=== PATIENT | female | born 1930 | race Caucasian/White ===

== ENCOUNTER 2019-03-08 16:01 | Inpatient (IN) ==
[2019-03-08] MEDS ORDERED: NS 1,000 ML IV ONE ×2 (16:47→21:30)
--- NOTE | 2019-03-08 17:11 | Diag Imaging Result Doc PS360 ---
EXAM: CHEST-1 VIEW HISTORY: AMS TECHNIQUE: Chest single view COMPARISON: None. FINDINGS: The lungs are well expanded. The heart is borderline mildly prominent. The vessels are not distended. There are small right base infiltrates. No effusion identified. Mild scoliosis IMPRESSION: Small right basilar infiltrates Electronically signed by Ernst Navarro 03/08/2019 5:09 PM
[2019-03-08 17:55] LABS: BILIRUBIN URINE NEGATIVE (NEGATIVE); BLOOD URINE 1+ (NEGATIVE); CLARITY SL. CLOUDY (CLEAR); COLOR YELLOW; GLUCOSE URINE NEGATIVE (NEGATIVE); KETONE URINE TRACE mg/dL (NEGATIVE); LEUKOCYTES URINE 1+ (NEGATIVE); NITRITE URINE POSITIVE (NEGATIVE); PROTEIN URINE TRACE mg/dL (NEGATIVE); UROBILINOGEN URINE NORMAL
[2019-03-08 18:11] LABS: BASO# 0.03 X1000 (0.0-0.2); BASO% 0.5 % (0.0-0.8); EOS# 0.13 X1000 (0.0-0.7); EOS% 2.3 % (0.0-10.0); HEMOGLOBIN 10.6 g/dL (12.0-16.0); IMM GRAN# 0.01 X1000 (0.0-0.04); IMM GRAN% 0.2 % (0.0-0.5); LYMPH# 0.69 X1000 (1.2-3.4); LYMPH% 12.1 % (20.5-51.1); MCH 29.6 PG (27-31); MCHC 32.1 g/dL (33-37); MCV 92.2 FL (81-99); MONO% 12.2 % (1.7-9.3); MPV 10.8 FL (7.4-10.4); NEUT# 4.16 X1000 (1.4-6.5); NEUT% 72.7 % (42.2-75.2); PLT 244 X1000 (130-400); RBC 3.58 XMIL (4.2-5.4); RDW 16.6 % (11.5-14.5); WBC 5.72 X1000 (4.8-10.8)
[2019-03-08] MEDS ORDERED: ROCEPHIN IV ONE (18:27)
[2019-03-08 18:41] LABS: AGAP 9; ALBUMIN 3.7 g/dL (3.5-5.0); ALKALINE PHOSPHATASE 101 U/L (32-104); BUN 20 mg/dL (8-22); CALCIUM 8.6 mg/dL (8.8-10.2); CHLORIDE 105 mmol/L (98-107); CK PROFILE 72 U/L (24-173); COSMO 285; CREATININE 0.6 mg/dL (0.5-0.9); ESTIMATED GFR > 60; GLUCOSE 89 mg/dL (70-104); GOT 24 U/L (10-30); GPT 18 U/L (10-36); POTASSIUM 4.3 mmol/L (3.5-5.1); SODIUM 142 mmol/L (136-145); TCO2 28 mmol/L (25-35); TOTAL PROTEIN 6.5 g/dL (6.3-8.3)
[2019-03-08 18:42] LABS: URINE BACTERIA 3+ /HFP; URINE CAST NONE SEEN /LPF; URINE CRYSTAL NONE SEEN /HPF; URINE EPITHELIAL CELLS <10 /HPF (<10); URINE SOURCE CLEAN CATCH; URINE YEAST NONE SEEN /HPF
--- NOTE | 2019-03-08 18:47 | PROVIDER DOCUMENTATION ---
This chart was entered by Bertrand Guallpa Scribe, acting as scribe for Marisol Mei MD. HPI-General Adult - General Chief Complaint: Altered Mental Status Stated Complaint: UTI SX Time Seen by Provider: 03/08/19 16:25 Source: patient, family Allergies/Adverse Reactions: Patient Allergies Allergy/AdvReac Type Severity Reaction Status Date / Time bacitracin [From Polysporin] Allergy RASH Verified 03/08/19 16:22 codeine Allergy VOMITING Verified 03/08/19 16:22 ibuprofen [From Motrin] Allergy Unknown Verified 03/08/19 16:22 Iodinated Contrast- Oral and Allergy RASH Verified 03/08/19 16:22 IV Dye [IV Dye] lactose Allergy NAUSEA/VOMI Verified 03/08/19 16:22 TING naproxen [From Naprosyn] Allergy FLUSHING Verified 03/08/19 16:22 neomycin Allergy RASH Verified 03/08/19 16:22 [From Neosporin ([id number])] Penicillins Allergy ANAPHYLAXIS Verified 03/08/19 16:22 polymyxin B [From Polysporin] Allergy RASH Verified 03/08/19 16:22 povidone-iodine Allergy RASH Verified 03/08/19 16:22 [From Betadine] shrimp Allergy ANAPHYLAXIS Verified 03/08/19 16:22 soap [From Betadine] Allergy RASH Verified 03/08/19 16:22 strawberry Allergy ANAPHYLAXIS Verified 03/08/19 16:22 Sulfa (Sulfonamide Allergy RASH Verified 03/08/19 16:22 Antibiotics) tolmetin [From Tolectin] Allergy Unknown Verified 03/08/19 16:22 Home Medications: Home Medication List Medication Instructions Recorded Confirmed Last Taken Type Home Meds Unobtainable 07/06/14 07/06/14 Unknown History - History of Present Illness -Gen Adult Nature of Presenting Problems: 88 yowf presents to ed with family at bedside. pt family states has been confused on location and has noted foul smelling urine and are concerned that pt has UTI on exam pt is calm and friendly with staff and in no distress Location of Pain/Injury: reports: none Pain Radiation: reports: no radiation Quality of Pain: reports: none Severity: reports: moderate (confusion) Onset/Duration: reports: this morning Timing: reports: still present, intermittent Context/Activities at Onset: reports: light activity Modifying Factors: improves with: nothing Associated Symptoms: reports: genitourinary problems (foul smell to urine), other (confusion). denies: back/neck pain, chest pain, shortness of breath Similar Symptoms Previously?: Yes (hx of UTI ) Recently seen or treated by another doctor?: No Review of Systems - Adult - REVIEW OF SYSTEMS - ADULT ROS:: ROS per family (family and pt spoke with dr) Constitutional: denies: chills, fever Eyes: reports: no symptoms reported Ears, Nose, Mouth & Throat: reports: no symptoms reported Cardiovascular: denies: chest pain, syncope Respiratory: denies: cough, shortness of breath, wheezing Gastrointestinal: denies: abdominal pain, diarrhea, nausea, vomiting Genitourinary: reports: see HPI, frequent UTI's, other (foul smell urine) Musculoskeletal: denies: back pain, neck pain Integumentary: reports: no symptoms reported Neurological: denies: dizziness/vertigo, headache/migraines, syncope, tremors Psychiatric: reports: no symptoms reported Endocrine: reports: no symptoms reported Hematologic/Lymphatic: reports: no symptoms reported Allergic/Immunologic: reports: no symptoms reported All Other Systems: Reviewed and Negative Past History - Adult - PAST MEDICAL HISTORY-ADULT Review of Records: reports: Old Records Reviewed, Nursing Assessment Review, Medications Reviewed, Social history reviewed & non-contributory. Major Childhood Illnesses: reports: denies history Cardiovascular: reports: CAD Respiratory: reports: denies history Gastrointestinal: reports: denies history Obstetrical/Gynecological: reports: denies history Genitourinary: reports: chronic UTI's Musculoskeletal: reports: arthritis Neurological: reports: denies history Psychiatric: reports: denies history Endocrine/Immune: reports: thyroid disorder Other Conditions: reports: denies history - PRIOR SURGERIES/PROCEDURES Surgical/Procedure History: reports: cardiac stent, hysterectomy, orthopedic (extremity) (left knee surgery) - PRIOR HOSPITALIZATIONS Prior Hospitalizations: reports: none - IMMUNIZATION STATUS Childhood Immunizations: See Nurse Assessment Flu Vaccine: See Nurse Assessment - FAMILY HISTORY Family History: reviewed, not pertinent - SOCIAL HISTORY Smoking: denies Substance Use: none/never Alcohol Use Frequency: never Living Situation: family Physical Exam-General - PHYSICAL EXAM-ADULT Initial Vital Signs Reviewed: Yes - CONSTITUTIONAL General Appearance: alert, no apparent distress, thin, other (confused) - EYES Eyes: PERRL/EOMI, pink conjunctivae - HEAD, EARS, NOSE, MOUTH & THROAT HENMT: moist mucous membranes - NECK Neck: non-tender, full range of motion - RESPIRATORY Respiratory: chest non-tender, lungs clear, normal breath sounds - CARDIOVASCULAR Cardiovascular: normal peripheral pulses, regular rate, rhythm - GASTROINTESTINAL (ABDOMEN) Abdominal Exam: normal bowel sounds, non tender, soft - LYMPHATIC Lymphatic: no adenopathy - MUSCULOSKELETAL Back Exam: normal inspection, no CVA tenderness Extremity: normal range of motion, non-tender - SKIN Integumentary: normal color, normal turgor, pallor - NEUROLOGIC Neurologic: grossly normal - PSYCHIATRIC Psych/Mental Status: normal mood/affect, other (confusion) Progress - PLAN OF CARE/RESULTS Progress/Plan/Lab Results: Vital Signs - 8 hr 03/08/19 16:17 Temperature 98.1 F Pulse Rate 89 Respiratory Rate 17 Blood Pressure 159/73 O2 Sat by Pulse Oximetry 98 Result Diagrams: 03/08/19 17:45 03/08/19 17:45 - REASSESSMENT Reassessment #1 Time Reassessed: 17:44 Status: unchanged - XRAY 1 XRAY: Bilateral XRAY Study: Chest Impression: See EMR Report (EXAM: CHEST-1 VIEW HISTORY: AMS TECHNIQUE: Chest single view COMPARISON: None. FINDINGS: The lungs are well expanded. The heart is borderline mildly prominent. The vessels are not distended. There are small right base infiltrates. No effusion identified. Mild scoliosis IMPRESSION: Small right basilar infiltrates Electronically signed by Ernst Navarro 03/08/2019 5:09 PM 03/08/19 170 Interpreting Physician: Ernst Navarro MD Dictated Date/Time: 03/08/191706 cc: Marisol Mei MD; Gee Boone MD) Departure - Departure Date of Disposition Decision: 03/08/19 Time of Disposition Decision: 18:46 DIAGNOSIS: Altered mental status, UTI (urinary tract infection) Disposition: ADMITTED INPATIENT 09 Certified Medical Emergency: Emergent Condition: Good Referrals and Follow-Ups: Jose Boone MD [Primary Care Provider] - - Critical Care Note This patient required my direct & personal management of CC.: No Attestation - Physician/ RICHARD Attestation Patient care was provided by Advanced Practice Provider:: No The physician spent face to face time with patient:: Yes Advanced Practice Provider documentation review:: Supervising physician onsite and consulted in the evaluation and care of this patient. The physician did have a face to face encounter with the patient. This chart was documented by the indicated scribe, (Bertrand Guallpa, Rox) and accurately reflects the services I performed and decisions made by me, Marisol Mei MD, as attested by the provider's signature.
[2019-03-08 19:13] LABS: INR 0.94; PTT 27.3 Seconds (22.3-41.8)
[2019-03-09] MEDS ORDERED: ZOFRAN IV PRN (06:44)
--- NOTE | 2019-03-09 08:44 | EKG Report ---
Test Performed on : 03/08/2019 7:48:55 PM Test Reason : ER Blood Pressure : / mmHG Vent. Rate : 095 BPM Atrial Rate : 095 BPM P-R Int : 156 ms QRS Dur : 066 ms QT Int : 316 ms P-R-T Axes : 067 -16 066 degrees QTc Int : 397 ms Normal sinus rhythm. Nonspecific ST abnormality Abnormal ECG No previous ECGs available Unconfirmed Result
[2019-03-09] MEDS: CARDIZEM PO SCH (08:49)
[2019-03-09] MEDS: LANOXIN PO SCH (08:49)
[2019-03-09] MEDS: PROTONIX PO SCH (08:49)
[2019-03-09] MEDS: SYNTHROID PO SCH ×2 (08:49→08:53)
[2019-03-09] MEDS: ASPIRIN EC PO SCH (08:49)
[2019-03-09] MEDS ORDERED: SYNTHROID PO SCH (09:00)
--- NOTE | 2019-03-09 11:29 | HISTORY AND PHYSICAL ---
PRIMARY CARE PROVIDER: Dr. Jose Boone. CHIEF COMPLAINT: Per notes, altered mental status. HISTORY OF PRESENT ILLNESS: Ms. Mckeon is an 88-year-old female who carries a past medical history of coronary artery disease status post stenting (she believes she has had 3 stents in the past), frequent urinary tract infections (she reports 3 over the last few months), arthritis, and hypothyroidism. She was brought into the ED by family, who states that the patient has been confused and they noted a foul smell coming from her urine. The patient is currently oriented to name, date of . She did not know the current year or President. She knew she was in the hospital, getting a treatment for an infection. Workup in the ED did reveal a urinary tract infection. She was started on IV antibiotics, and admitted for further evaluation and treatment. At the time of my interview, there was no family at bedside. PAST MEDICAL HISTORY: 1. Coronary artery disease, status post stenting. 2. Frequent urinary tract infections. 3. Arthritis. 4. Hypothyroidism. PAST SURGICAL HISTORY: 1. Stents, I believe x3. 2. Hysterectomy. 3. Left knee surgery. FAMILY HISTORY: Unknown. SOCIAL HISTORY: She is a . She lost her last month. She lives at home alone. No alcohol, tobacco, or illicit drug use. ALLERGIES: The patient reported no known drug allergies. However, we have several listed: 1. Polysporin (rash). 2. Codeine (vomiting). 3. Ibuprofen (unknown). 4. IV dye (rash). 5. Lactose (nausea and vomiting). 6. Naproxen (flushing). 7. Betadine (rash). 8. Shrimp (anaphylaxis). 9. Strawberries (anaphylaxis). 10. Sulfa (rash). 11. Tolectin. HOME MEDICATIONS: 1. Adult aspirin 81 mg p.o. daily. 2. Digoxin 0.125 mg p.o. daily. 3. Cardizem 30 mg p.o. daily. 4. Synthroid 125 mcg p.o. daily. 5. Mobic 7.5 mg p.o. daily. 6. Protonix 40 mg p.o. daily. REVIEW OF SYSTEMS: On 12-point review of systems, the patient denies headache, fever, chills, cough, chest pain, palpitations, shortness of breath, nausea, vomiting, diarrhea. She denies any dysuria. However, she felt that she has had an increase in her frequency of urination. PHYSICAL EXAMINATION: VITAL SIGNS: Temperature is 98.1 degrees, heart rate 76, respirations 16, blood pressure is 148/64, O2 is 94% on room air. GENERAL: Ms. Mckeon is a sleepy, 88-year-old, female, who does wake up to voice and does attempt to answer questions. She seems somewhat appropriate, maybe somewhat still a little bit confused. There was no family at bedside. She had just received her bath. HEENT: Atraumatic, normocephalic. PERRL. NECK: Supple. Trachea midline. CARDIOVASCULAR: S1, S2 appreciated. No murmurs, gallops, or rubs noted. GASTROINTESTINAL: Soft, nontender, nondistended. Positive bowel sounds x4 quadrants. PULMONARY: Bilateral breath sounds. Did not appreciate any rales, rhonchi, or wheezes. EXTREMITIES: Negative for edema. The patient was moving all extremities appropriately. NEUROLOGIC: No focal deficits noted. DIAGNOSTIC DATA: Chest x-ray: Small right basilar infiltrates. EKG: Normal sinus rhythm at 95 beats per minute. LABORATORY DATA: White count 5, hemoglobin and hematocrit 10 and 33, platelet count is 244,000. Sodium 142, potassium 4.3, BUN 20, creatinine 0.6, blood glucose is 89. Plasma lactates were negative. Troponin less than 0.010. Urinalysis showed 3+ bacteria, positive for nitrates. ASSESSMENT AND PLAN: 1. Urinary tract infection. Urine culture is currently pending. We will continue with intravenous Rocephin. She has already received 2 liters of fluid. 2. Bibasilar infiltrates. The patient does not have an appearance of pneumonia or any fluid volume overload. She is being currently treated with Rocephin, so if she does fluff out a pneumonia, she is correctly covered. She has no complaints of fever, chills, cough, or any productive sputum. 3. Question of atrial fibrillation. The patient is on digoxin and Cardizem. However, she denied any heart arrhythmias. We will continue with those medications. 4. Hypothyroidism. She also denied any thyroid problems. We will continue with her Synthroid. 5. Altered mental status secondary to #1, somewhat improving. We will continue to monitor her. Further recommendation to follow physician evaluation, laboratory and diagnostic data. Dictated by NOBLE Becker for Unruly Torres MD cc: MD Jose Cast MD
[2019-03-09] MEDS: ROCEPHIN 1 GM in NS 50 ML IV SCH (17:15)
--- NOTE | 2019-03-09 17:24 | Diag Imaging Result Doc PS360 ---
EXAM: CT HEAD W/O CONTRAST - 03/09/2019 HISTORY: AMS TECHNIQUE: CT head without contrast COMPARISON: 07/06/2014 FINDINGS: There is some generalized atrophic changes. There are chronic microvascular ischemic changes. There is a lacunar infarct at the left thalamus which appears to developed since the previous exam but otherwise is of nonspecific age. There is no discrete acute infarct identified, although acute infarcts may not be immediately visible. There is no evidence of intracranial hemorrhage, mass effect, or midline shift. There is no evidence of skull fracture. IMPRESSION: Atrophic changes. Chronic microvascular ischemic changes. 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 No hemorrhage or mass effect. This exam was performed using automated exposure control, adjustment of mA or kV according to patient size, and/or use of iterative reconstruction technique. Electronically signed by Venkat Savage 03/09/2019 5:21 PM
--- NOTE | 2019-03-09 20:49 | HISTORY AND PHYSICAL ---
ADDENDUM: Patient was seen and examined by myself. Full note dictated and discussed with nurse practitioner. The patient presented to the hospital with acute metabolic encephalopathy secondary to a urinary tract infection. This morning, after one round of antibiotics and IV fluids, she certainly appears to be improving. We will continue her in the hospital, check urine culture, blood culture, continue antibiotics, and will follow. cc: Unruly Torres MD
[2019-03-10 05:56] LABS: HEMATOCRIT 35.3 % (37.0-47.0); MCH 28.6 PG (27-31); MCHC 31.2 g/dL (33-37); MCV 91.7 FL (81-99); MPV 10.9 FL (7.4-10.4); RBC 3.85 XMIL (4.2-5.4); RDW 16.8 % (11.5-14.5); WBC 5.58 X1000 (4.8-10.8)
[2019-03-10] MEDS: SYNTHROID PO SCH ×4 (05:56→07:26)
[2019-03-10 06:26] LABS: AGAP 8; BUN 14 mg/dL (8-22); CALCIUM 8.6 mg/dL (8.8-10.2); CHLORIDE 105 mmol/L (98-107); COSMO 283; CREATININE 0.5 mg/dL (0.5-0.9); ESTIMATED GFR > 60; GLUCOSE 92 mg/dL (70-104); POTASSIUM 3.9 mmol/L (3.5-5.1); SODIUM 142 mmol/L (136-145); TCO2 30 mmol/L (25-35)
--- NOTE | 2019-03-10 06:51 | Diag Imaging Result Doc PS360 ---
EXAM: CHEST-PORTABLE HISTORY: follow up TECHNIQUE: Portable chest single view COMPARISON: 03/08/2019 FINDINGS: Poor inspiratory effort. The heart is not enlarged. The vessels are mildly distended. There are no infiltrates on the current exam. No effusion identified. IMPRESSION: Clearing of the basilar infiltrates. Electronically signed by Ernst Navarro 03/10/2019 6:49 AM
[2019-03-10] MEDS: PROTONIX PO SCH (09:28)
[2019-03-10] MEDS: CARDIZEM PO SCH (09:29)
[2019-03-10] MEDS: ASPIRIN EC PO SCH (09:29)
[2019-03-10] MEDS: LANOXIN PO SCH (09:29)
[2019-03-10] MEDS: ROCEPHIN 1 GM in NS 50 ML IV SCH (17:07)
--- NOTE | 2019-03-10 17:11 | PROGRESS NOTE ---
DATE: 03/10/2019 SUBJECTIVE: Patient is doing better. She is less confused. The family denies any fevers or chills. Denies any other issues currently. PHYSICAL EXAMINATION: Vital Signs: Temperature afebrile pulse 66, respiratory 18, blood pressure 156/49. General: Patient is awake, alert, currently in no distress. HEENT: Normocephalic. Neck: Supple. Cardiovascular: Regular rate. Chest: Clear. Abdomen: Soft. Extremities: Moves all extremities. Neurologic: No changes. ASSESSMENT: 1. ESBL negative, Escherichia coli urinary tract infection. 2. Hypothyroidism with current hyperthyroidism. We will decrease her Synthroid to 100 from 125. 3. Bibasilar infiltrates. Continue antibiotics. 4. Acute metabolic encephalopathy secondary to urinary tract infection. Continues to improve. We will continue to follow patient in the hospital. We will get physical therapy. I expect that she will need rehab upon discharge. We will follow. cc: Unruly Torres MD MTDD
[2019-03-10] MEDS: TYLENOL PO PRN (21:42)
[2019-03-11] MEDS: TYLENOL PO PRN (03:43)
[2019-03-11] MEDS: LANOXIN PO SCH (08:28)
[2019-03-11] MEDS: ASPIRIN EC PO SCH (08:28)
[2019-03-11] MEDS: CARDIZEM PO SCH (08:28)
[2019-03-11] MEDS: PRINIVIL PO SCH (08:28)
[2019-03-11] MEDS: SYNTHROID PO SCH (08:31)
[2019-03-11] MEDS: PROTONIX PO SCH (08:31)
[2019-03-11] MEDS ORDERED: SEROQUEL PO PRN (09:28)
[2019-03-11] MEDS: LEVAQUIN PO SCH (11:46)
--- NOTE | 2019-03-11 14:04 | PROGRESS NOTE ---
DATE: 03/11/2019 SUBJECTIVE: Ms. Mckeon has no complaints. She is eating breakfast. Family notes she is still confused, disoriented. She had been getting weaker at home prior to coming to the hospital, and she is currently unable to assist in getting herself out of bed. PHYSICAL EXAMINATION: Vital Signs: Reviewed. Temperature 99 degrees, pulse 86, respiratory rate 18, BP 165/90. General: Patient is awake, very pleasant, although disoriented. She is in no respiratory distress. HEENT: Normocephalic. Neck: Supple. Cardiovascular: Regular rate. No murmurs. Chest: Clear, nonlabored. Abdomen: Soft, nondistended. Extremities: Moves all extremities, although generalized weakness. ASSESSMENT: 1. Hypertension. We will add lisinopril 5 mg daily to her blood pressure control. 2. Dementia with acute metabolic encephalopathy secondary to urinary tract infection. 3. Escherichia coli urinary tract infection, pansensitive. We will switch her antibiotics to p.o. Levaquin. 4. Adult failure to thrive. 5. Hyperthyroidism. We have decreased her Synthroid. We will recheck this in the morning. We will continue to follow. cc: Unruyl Torres MD
[2019-03-12] MEDS: TYLENOL PO PRN ×2 (03:51→21:49)
[2019-03-12] MEDS: SYNTHROID PO SCH (06:26)
--- NOTE | 2019-03-12 10:15 | PROGRESS NOTE ---
DATE: 03/12/2019 SUBJECTIVE: The family notes that she slept a little bit better last night. They deny any fevers. States she is eating okay. PHYSICAL EXAMINATION: Temperature 97.7, pulse 81, respiratory rate 18, BP 134/52. General: Patient is awake. Currently in no distress. HEENT: Normocephalic. Neck: Supple. Cardiovascular: Regular rate. Chest: Clear. Abdomen: Soft. Extremities: Moves all extremities. ASSESSMENT: 1. Hypertension. Blood pressures are improved with lisinopril 5 mg. 2. Chronic dementia. 3. Escherichia coli urinary tract infection. 4. Hypothyroidism. 5. Adult failure to thrive. PLAN: We will continue physical therapy. Continue to follow. Expect that she will need rehab as she is still having difficulty getting out of bed. Further orders as needed. cc: Unruly Torres MD
[2019-03-12] MEDS: PRINIVIL PO SCH (11:01)
[2019-03-12] MEDS: PROTONIX PO SCH (11:01)
[2019-03-12] MEDS: LANOXIN PO SCH (11:01)
[2019-03-12] MEDS: ASPIRIN EC PO SCH (11:01)
[2019-03-12] MEDS: CARDIZEM PO SCH (11:01)
[2019-03-12] MEDS: LEVAQUIN PO SCH (11:02)
[2019-03-13] MEDS: SYNTHROID PO SCH (07:38)
[2019-03-13] MEDS: PROTONIX PO SCH (07:38)
[2019-03-13] MEDS: LANOXIN PO SCH (08:22)
[2019-03-13] MEDS: LEVAQUIN PO SCH (08:22)
[2019-03-13] MEDS: ASPIRIN EC PO SCH (08:23)
[2019-03-13] MEDS: PRINIVIL PO SCH (08:23)
[2019-03-13] MEDS: CARDIZEM PO SCH (08:28)
[2019-03-13] MEDS: MOBIC PO SCH (09:30)
[2019-03-13] MEDS: TYLENOL PO PRN (12:14)
--- NOTE | 2019-03-13 18:44 | PROGRESS NOTE ---
DATE: 03/13/2019 SUBJECTIVE: Patient herself has no complaints. Family notes that she is still confused, although this does seem to be getting better. Family notes that she is starting to eat a little bit better. PHYSICAL EXAMINATION: Vital Signs: Temperature 98.7 degrees, pulse 89, respiratory rate 18, BP 117/47. General: Patient is awake. She is in no respiratory distress. HEENT: Normocephalic. Neck: Supple. Cardiovascular: Regular rate. Chest: Clear. Abdomen: Soft. Extremities: Moves all extremities, although generalized weakness. ASSESSMENT: 1. Adult failure to thrive with generalized weakness. 2. Hypertension. Blood pressures are better at 117 on low-dose lisinopril. 3. Escherichia coli urinary tract infection. Continue antibiotics. 4. Mild dementia with metabolic encephalopathy secondary to her urinary tract infection, improving. PLAN: We will continue patient in the hospital, continue antibiotics, physical therapy, and will likely require transfer to rehab as she is unable to get out of bed on her own. cc: Unruly Torres MD
[2019-03-14] MEDS: TYLENOL PO PRN (01:08)
[2019-03-14] MEDS: PROTONIX PO SCH (06:42)
[2019-03-14] MEDS: SYNTHROID PO SCH (06:42)
[2019-03-14] MEDS: CARDIZEM PO SCH (09:29)
[2019-03-14] MEDS: LEVAQUIN PO SCH (09:29)
[2019-03-14] MEDS: MOBIC PO SCH (09:29)
[2019-03-14] MEDS: LANOXIN PO SCH (09:29)
[2019-03-14] MEDS: ASPIRIN EC PO SCH (09:30)
[2019-03-14] MEDS: PRINIVIL PO SCH (09:31)
[2019-03-14 11:21] VITALS: BP 143/45
--- NOTE | 2019-03-14 11:41 | DISCHARGE SUMMARY ---
ADMISSION DATE: 03/08/2019 DISCHARGE DATE: 03/14/2019 PRIMARY CARE PHYSICIAN: Dr. Jose Boone. ADMISSION DIAGNOSES: 1. Urinary tract infection. 2. Bibasilar infiltrates. 3. Question of atrial fibrillation. 4. Hypothyroidism. 5. Altered mental status secondary to #1. DISCHARGE DIAGNOSES: 1. Escherichia coli urinary tract infection. 2. Hypertension. 3. Hypothyroidism. 4. Chronic dementia. 5. Adult failure to thrive. 6. Bibasilar infiltrates, improved. 7. Altered mental status secondary to her urinary tract infection, resolved and back at baseline. SUMMARY OF FINDINGS: This is an 88-year-old female who presented to the emergency room with family due to having some confusion, and they noted a foul smell coming from her urine. She was oriented to name and date of , but did not know the current year, president. Her workup in the ED revealed a urinary tract infection that grew out in her urine culture E coli. She was placed on IV antibiotics appropriately. Her chest x-ray on arrival showed a small right basilar infiltrate; it was repeated on 03/10/2019 that showed clearing of the basilar infiltrate. Her white blood cell count is normal at 5.58. She has remained afebrile for greater than 24 hours, and it is now felt that she can safely be discharged to rehab. DISCHARGE MEDICATIONS: Will include Levaquin 500 mg p.o. daily for 7 days, digoxin 0.125 mg p.o. daily, Cardizem 30 mg p.o. daily, Synthroid 125 mcg p.o. daily, meloxicam 7.5 mg p.o. daily, pantoprazole 40 mg p.o. daily, and aspirin 81 mg p.o. daily. FOLLOW-UP: She will need to follow up with her primary care physician once her rehab is completed and an appointment will be made at that time. TIME SPENT: This is a 35 minute discharge for Мария Mckeon. Dictated by NOBLE Weaver for Unruly Torres MD cc: NOBLE Weaver MD Micah A. Howard, MD
--- NOTE | 2019-03-14 19:33 | DISCHARGE SUMMARY ---
ADMISSION DATE: 03/09/2019 DISCHARGE DATE: 03/14/2019 The patient seen and examined by myself. Full note dictated and discussed with nurse practitioner. The patient is a very pleasant 88-year-old female who is in no current respiratory distress. She was admitted to the hospital with metabolic encephalopathy which has improved, but she is still not back to her baseline mental status. She does have an Escherichia coli urinary tract infection, and she will be discharged to rehabilitation on antibiotics. Please see full note. cc: Unruly Torres MD
== END 2019-03-14 15:38 | DRG 689 ==
LOC: P.MEDSURG 16:01 → P.ED 16:01
PROVIDERS: ATTEND Family Medicine

== ENCOUNTER 2019-03-24 12:14 | Inpatient (IN) ==
--- NOTE | 2019-03-24 13:12 | Diag Imaging Result Doc PS360 ---
EXAM: ANKLE COMPLETE RIGHT HISTORY: fall TECHNIQUE: Right ankle, three views COMPARISON: None. FINDINGS: There is an oblique fracture through the distal shaft of the tibia. The proximal and distal shafts are approximately a centimeter. No other fracture to the ankle. IMPRESSION: Fracture to the distal shaft of the tibia. Electronically signed by Ernst Navarro 03/24/2019 1:10 PM
--- NOTE | 2019-03-24 13:13 | Diag Imaging Result Doc PS360 ---
EXAM: KNEE 3 VIEWS RIGHT HISTORY: fall TECHNIQUE: Right knee, three views COMPARISON: None. FINDINGS: There is an oblique fracture to the proximal fibula. There is mild angulation and separation. No other fracture or dislocation. Long-standing arthritis to the knee. Prominent atherosclerosis. IMPRESSION: Fracture to the proximal fibula. Electronically signed by Ernst Navarro 03/24/2019 1:11 PM
--- NOTE | 2019-03-24 13:14 | Diag Imaging Result Doc PS360 ---
EXAM: LOWER LEG-RIGHT HISTORY: dg TECHNIQUE: Tibia and fibula, two views COMPARISON: None. FINDINGS: There are oblique fractures to the proximal shaft of the fibula and distal shaft of the tibia. Mild angulation and separation to each fracture. Long-standing arthritis to the knee. Prominent atherosclerosis. IMPRESSION: Fractures to the tibia and fibula. Electronically signed by Ernst Navarro 03/24/2019 1:11 PM
--- NOTE | 2019-03-24 13:15 | Diag Imaging Result Doc PS360 ---
EXAM: FEMUR 1 VIEW RIGHT 03/24/2019 HISTORY: fall TECHNIQUE: Right femur one view COMMENT: There is no evidence of fracture or dislocation. The superficial femoral artery is densely calcified. IMPRESSION: No evidence of fracture. Electronically signed by Lamont Queen 03/24/2019 1:13 PM
--- NOTE | 2019-03-24 13:15 | Diag Imaging Result Doc PS360 ---
EXAM: XRAY PELVIS W/HIP 2-3VW RT HISTORY: fall TECHNIQUE: Pelvis and right hip, three views COMPARISON: 07/06/2014 FINDINGS: No fracture. No dislocation. Prominent atherosclerosis. IMPRESSION: No acute bony injury. Electronically signed by Ernst Navarro 03/24/2019 1:13 PM
--- NOTE | 2019-03-24 13:27 | Diag Imaging Result Doc PS360 ---
EXAM: LOWER LEG-LEFT HISTORY: fall TECHNIQUE: Left tibia and fibula, two views COMPARISON: None. FINDINGS: No fracture. No dislocation. Arthritis to the knee. IMPRESSION: No acute bony injury. Electronically signed by Ernst Navarro 03/24/2019 1:25 PM
--- NOTE | 2019-03-24 13:34 | Diag Imaging Result Doc PS360 ---
EXAM: CHEST-1 VIEW 03/24/2019 HISTORY: pre-op TECHNIQUE: AP portable at 1328 COMMENT: No evidence of acute cardiac or pulmonary disease is present and compared to 03/10/2019 there has been no significant change. IMPRESSION: No evidence of acute disease. Electronically signed by Lamont Queen 03/24/2019 1:32 PM
[2019-03-24] MEDS ORDERED: MORPHINE IV ONE (14:24)
[2019-03-24] MEDS ORDERED: ZOFRAN IV ONE (14:24)
[2019-03-24 14:38] LABS: BASO# 0.03 X1000 (0.0-0.2); BASO% 0.3 % (0.0-0.8); EOS# 0.05 X1000 (0.0-0.7); EOS% 0.5 % (0.0-10.0); HEMATOCRIT 37.7 % (37.0-47.0); HEMOGLOBIN 12.4 g/dL (12.0-16.0); IMM GRAN# 0.02 X1000 (0.0-0.04); IMM GRAN% 0.2 % (0.0-0.5); LYMPH# 0.95 X1000 (1.2-3.4); LYMPH% 8.7 % (20.5-51.1); MCH 29.8 PG (27-31); MCHC 32.9 g/dL (33-37); MCV 90.6 FL (81-99); MONO# 1.01 X1000 (0.11-0.59); MONO% 9.3 % (1.7-9.3); MPV 10.2 FL (7.4-10.4); PLT 352 X1000 (130-400); RBC 4.16 XMIL (4.2-5.4); RDW 16.8 % (11.5-14.5); WBC 10.86 X1000 (4.8-10.8)
[2019-03-24 14:40] LABS: INR 0.96; PROTIME 12.9 Seconds (11.0-16.0)
[2019-03-24 14:41] LABS: PTT 26.2 Seconds (22.3-41.8)
--- NOTE | 2019-03-24 15:07 | EKG Report ---
Test Performed on : 03/24/2019 2:38:44 PM Test Reason : pre-op Blood Pressure : / mmHG Vent. Rate : 085 BPM Atrial Rate : 085 BPM P-R Int : 136 ms QRS Dur : 066 ms QT Int : 352 ms P-R-T Axes : 025 -07 034 degrees QTc Int : 418 ms Normal sinus rhythm. Possible Anterior infarct , age undetermined Abnormal ECG When compared with ECG of 08-MAR-2019 19:48, (Unconfirmed) No significant change was found Unconfirmed Result
[2019-03-24] MEDS ORDERED: KAYEXALATE PO ONE (15:08)
--- NOTE | 2019-03-24 15:21 | PROVIDER DOCUMENTATION ---
This chart was entered by Roby Huerta Scribe, acting as scribe for Beau Cross MD. HPI-Musculoskeletal Pain/Inj - GENERAL Chief Complaint: Extremity Injury Stated Complaint: fall- R tib/fib fx Time Seen by Provider: 03/24/19 12:27 Source: patient, family - HX OF PRESENT ILLNESS-MUSKULOSKELTAL Nature of Presenting Problem: Pt is a 88 yof who presents to the ED with a CC of fall injury. Pt reports she was at physical therapy for a UTI, when she went to stand up, became lightheaded and fell. Pt complains of bilateral hip pain and bilateral lower extremity pain. Pt denies any chest pain, shortness of breath, LOC, nausea, and vomiting. The following are additional X-rays that would not fit in the progress note section: EXAM: XRAY PELVIS W/HIP 2-3VW RT HISTORY: fall TECHNIQUE: Pelvis and right hip, three views COMPARISON: 07/06/2014 FINDINGS: No fracture. No dislocation. Prominent atherosclerosis. IMPRESSION: No acute bony injury. Electronically signed by Ernst Navarro 03/24/2019 1:13 PM 03/24/19 1313 Interpreting Physician: Ernst Navarro MD Dictated Date/Time: 03/24/19 1312 cc: Beau Cross MD; Jose Boone MD EXAM: FEMUR 1 VIEW RIGHT 03/24/2019 HISTORY: fall TECHNIQUE: Right femur one view COMMENT: There is no evidence of fracture or dislocation. The superficial fem oral artery is densely calcified. IMPRESSION: No evidence of fracture. Electronically signed by Lamont Queen 03/24/2019 1:13 PM 03/24/19 1313 Interpreting Physician: Lamont Queen MD Dictated Date/Time: 03/24/19 1313 cc: Beau Cross MD; Jose Boone MD EXAM: ANKLE COMPLETE RIGHT HISTORY: fall TECHNIQUE: Right ankle, three views COMPARISON: None. FINDINGS: There is an oblique fracture through the distal shaft of the tibia. The proximal and distal shafts are approximately a centimeter. No other fracture to the ankle. IMPRESSION: Fracture to the distal shaft of the tibia. Electronically signed by Ernst Navarro 03/24/2019 1:10 PM 03/24/19 1310 Interpreting Physician: Ernst Navarro MD Dictated Date/Time: 03/24/19 4831 cc: Beau Cross MD; Jose Boone MD Quality of Pain: reports: aching, sharp Severity in ED: mild Onset/Duration: this morning Timing: still present Any recent injury?: Yes Locality of Occurance: Other (Physical therapy office) Similar Symptoms Previously?: No Recently seen or treated by another doctor?: No - FALL INJURY Location of Pain/Injury: reports: head (Lightheaded), pelvis (Bilateral), lower extremity (Bilateral) Reason for Fall: reports: unknown (See HPI) Loss of Consciousness: no loss of consciousness Injury Associated Symptoms: reports: muscle aches, trouble walking - TRUNK INJURY Location of Injury(s)/Pain: reports: pelvis Context / Method of Injury: reports: fall - HIP/PELVIS PAIN/INJURY Hip Pain Location: reports: hip (R), hip (L) Context / Method of Injury: reports: fall Associated Symptoms: reports: sensory/motor loss - LOWER EXTREMITY PAIN/INJURY Lower Extremities Pain: hip: bilateral, leg: bilateral, thigh: left, ankle: right Context / Method of Injury: reports: fell Review of Systems - Adult - REVIEW OF SYSTEMS - ADULT Constitutional: reports: see HPI Eyes: reports: no symptoms reported Ears, Nose, Mouth & Throat: reports: no symptoms reported Cardiovascular: reports: no symptoms reported Respiratory: reports: no symptoms reported Gastrointestinal: reports: no symptoms reported Genitourinary: reports: no symptoms reported Musculoskeletal: reports: see HPI, joint pain, muscle aches, muscle weakness Integumentary: reports: no symptoms reported Neurological: reports: see HPI Psychiatric: reports: no symptoms reported Endocrine: reports: no symptoms reported Hematologic/Lymphatic: reports: no symptoms reported Allergic/Immunologic: reports: no symptoms reported All Other Systems: Reviewed and Negative Past History - Adult - PAST MEDICAL HISTORY-ADULT Review of Records: reports: Old Records Reviewed, Nursing Assessment Review, Me dications Reviewed, Social history reviewed & non-contributory. Major Childhood Illnesses: reports: denies history Cardiovascular: reports: CAD Respiratory: reports: denies history Gastrointestinal: reports: denies history Obstetrical/Gynecological: reports: denies history Genitourinary: reports: denies history Musculoskeletal: reports: arthritis Neurological: reports: denies history Endocrine/Immune: reports: thyroid disorder Other Conditions: reports: denies history - PRIOR SURGERIES/PROCEDURES Surgical/Procedure History: reports: cardiac stent, hysterectomy, orthopedic (extremity) (left knee surgery) - PRIOR HOSPITALIZATIONS Prior Hospitalizations: reports: none - IMMUNIZATION STATUS Childhood Immunizations: See Nurse Assessment Flu Vaccine: See Nurse Assessment - FAMILY HISTORY Family History: reviewed, not pertinent - SOCIAL HISTORY Smoking: denies, non-smoker Substance Use: none/never, denies Alcohol Use Frequency: never Physical Exam-Injury Related - Physical Exam-Injury Related Initial Vital Signs Reviewed: Yes General Appearance: alert, mild distress Eyes: PERRL/EOMI, pink conjunctivae Head, Ears, Nose, Mouth & Throat: moist mucous membranes Neck: non-tender, full range of motion Respiratory: chest non-tender, lungs clear, normal breath sounds, no pleuratic chest pain, no respiratory distress Cardiovascular: normal peripheral pulses, regular rate, rhythm, no edema, no gallop Abdominal Exam: normal bowel sounds, soft Extremity: tenderness (See HPI) Integumentary: normal color, warm/dry Psych/Mental Status: normal mood/affect, normal thought content, normal thought process, oriented x 3 Progress - PLAN OF CARE/RESULTS Progress/Plan/Lab Results: Vital Signs - 8 hr 03/24/19 12:32 Temperature 98.5 F Pulse Rate 91 H Respiratory Rate 18 Blood Pressure 145/76 O2 Sat by Pulse Oximetry 96 Laboratory Results - last 24 hr 03/24/19 03/24/19 03/24/19 13:53 14:25 14:25 WBC 10.86 H RBC 4.16 L Hgb 12.4 Hct 37.7 MCV 90.6 MCH 29.8 MCHC 32.9 L RDW Std Deviation 16.8 H Plt Count 352 MPV 10.2 Immature Gran % (Auto) 0.2 Neut % (Auto) 81.0 H Lymph % (Auto) 8.7 L Jay % (Auto) 9.3 Eos % (Auto) 0.5 Baso % (Auto) 0.3 Immature Gran # (Auto) 0.02 Neut # (Auto) 8.80 H Lymph # (Auto) 0.95 L Jay # (Auto) 1.01 H Eos # (Auto) 0.05 Baso # (Auto) 0.03 PT 12.9 INR 0.96 PTT (Actin FS) 26.2 Sodium 139 Potassium 5.9 H Chloride 103 Carbon Dioxide 24 L Anion Gap 12 BUN 22 Creatinine 0.6 Estimated GFR/1.73 m2 > 60 BUN/Creatinine Ratio 37 Glucose 106 H Calculated Osmolality 281 Calcium 9.3 Total Bilirubin 0.19 L AST 51 H ALT 16 Alkaline Phosphatase 90 Total Protein 6.8 Albumin 3.6 Globulin 3.2 Albumin/Globulin Ratio 1.1 Orders Category Date Time Status Nursing- Obtain EKG ONCE Care 03/24/19 13:21 Active ANKLE COMPLETE RIGHT [RAD] Stat Exams 03/24/19 12:35 Completed CHEST-1 VIEW [RAD] Stat Exams 03/24/19 13:21 Completed FEMUR 1 VIEW RIGHT [RAD] Stat Exams 03/24/19 12:35 Completed KNEE 3 VIEWS RIGHT [RAD] Stat Exams 03/24/19 12:35 Completed LOWER LEG-LEFT [RAD] Stat Exams 03/24/19 13:19 Completed LOWER LEG-RIGHT [RAD] Stat Exams 03/24/19 12:35 Completed XRAY PELVIS W/HIP 2-3VW RT [RAD] Stat Exams 03/24/19 12:35 Completed CBC WITH DIFF [HEME] Stat Lab 03/24/19 14:25 Completed COMPREHENSIVE METABOLIC PANEL [CHEM] Stat Lab 03/24/19 13:53 Completed PROTIME WITH INR [COAG] Stat Lab 03/24/19 14:25 Completed PTT [COAG] Stat Lab 03/24/19 14:25 Completed URINALYSIS W/POSS RFLX CULT [URINALYSIS] Stat Lab 03/24/19 13:21 Uncollected Morphine Med 03/24/19 14:24 Discontinued 2 mg IV NOW ONE Ondansetron [Zofran] Med 03/24/19 14:24 Discontinued 4 mg IV NOW ONE Sodium Polystyrene [Kayexalate] Med 03/24/19 15:08 Discontinued 15 gm PO NOW ONE EKG [EKG] Stat Ther 03/24/19 13:21 Draft Transfer/Admit Order [TRANSFER] Routine Transfer 03/24/19 15:09 Ordered Result Diagrams: 03/24/19 14:25 03/24/19 13:53 - EKG 1 Time of EKG reading by physician:: 14:59 EKG Read and Signed by:: Beau Cross EKG Interpretation (*Must complete 3 of following elements*): Abnormal (Possible anterior infarct, age undetermined) Rate: 85 Rhythm: NSR [place]: normal QRS: normal [place] Interval: normal ST Wave: normal - XRAY 1 XRAY: Bilateral XRAY Study: Chest Impression: See EMR Report ( EXAM: CHEST-1 VIEW 03/24/2019 HISTORY: pre-op TECHNIQUE: AP portable at 1328 COMMENT: No evidence of acute cardiac or pulmonary disease is present and compared to 03/10/2019 there has been no significant change. IMPRESSION: No evidence of acute disease. Electronically signed by Lamont Queen 03/24/2019 1:32 PM 03/24/19 1332 Interpreting Physician: Lamont Queen MD Dictated Date/Time: 03/24/19 1330 cc: Beau Cross MD; Jose Boone MD) 2 XRAY: Left XRAY Study: other (Lower extremity) Impression: See EMR Report (EXAM: LOWER LEG-LEFT HISTORY: fall TECHNIQUE: Left tibia and fibula, two views COMPARISON: None. FINDINGS: No fracture. No dislocation. Arthritis to the knee. IMPRESSION: No acute bony injury. Electronically signed by Ernst Navarro 03/24/2019 1:25 PM 03/24/19 1325 Interpreting Physician: Ernst Navarro MD Dictated Date/Time: 03/24/19 1325 cc: Beau Cross MD; Jose Boone MD) 3 XRAY: Right XRAY Study: other (Lower extremity) Impression: See EMR Report ( EXAM: LOWER LEG-RIGHT HISTORY: dg TECHNIQUE: Tibia and fibula, two views COMPARISON: None. FINDINGS: There are oblique fractures to the proximal shaft of the fibula and distal shaft of the tibia. Mild angulation and separation to each fracture. Long-standing arthritis to the knee. Prominent atherosclerosis. IMPRESSION: Fractures to the tibia and fibula. Electronically signed by Ernst Navarro 03/24/2019 1:11 PM 03/24/19 1311 Interpreting Physician: Ernst Navarro MD Dictated Date/Time: 03/24/19 1311 cc: Beau Cross MD; Jose Boone MD) 4 XRAY: Right XRAY Study: Knee Impression: See EMR Report (EXAM: KNEE 3 VIEWS RIGHT HISTORY: fall TECHNIQUE: Right knee, three views COMPARISON: None. FINDINGS: There is an oblique fracture to the proximal fibula. There is mild angulation and separation. No other fracture or dislocation. Long-standing arthritis to the knee. Prominent atherosclerosis. IMPRESSION: Fracture to the proximal fibula. Electronically signed by Ernst Navarro 03/24/2019 1:11 PM 03/24/19 1311 Interpreting Physician: Ernst Navarro MD Dictated Date/Time: 03/24/19 1310 cc: Beau Cross MD; Jose Boone MD) - CONSULTS/PCP/HOSPITALIST Notification #1 *Consult/PCP/Hospitalist*: Dr. Schultz Time Discussed: 15:02 Reason/Comments: Made aware of pt and accepts admission Consult Disposition: Admit Departure - Departure Date of Disposition Decision: 03/24/19 Time of Disposition Decision: 15:20 DIAGNOSIS: Closed fracture of right tibia and fibula Qualifiers: Encounter type: initial encounter Qualified Code(s): S82.201A - Unspecified fracture of shaft of right tibia, initial encounter for closed fracture; S82.401A - Unspecified fracture of shaft of right fibula, initial encounter for closed fracture Disposition: ADMITTED INPATIENT 09 Certified Medical Emergency: Emergent Condition: Good Additional Freetext Instructions: ED Follow Up Instructions: You have been treated by a care provider in the Emergency Department. These instructions are being provided to you so you can have an understanding of how to care for yourself upon discharge. Upon discharge from the Emergency Department, you are responsible for making arrangements for follow-up care by a physician of your choice. Take all prescribed medications as directed. Return to the Emergency Department immediately for any new or worsening symptoms. You may call the Physician Referral phone number at [phone] to obtain a list of Physicians who are taking new patients. Referrals and Follow-Ups: Jose Boone MD [Primary Care Provider] - - Critical Care Note This patient required my direct & personal management of CC.: No Attestation - Physician/ RICHARD Attestation Patient care was provided by Advanced Practice Provider:: No The physician spent face to face time with patient:: Yes Advanced Practice Provider documentation review:: Supervising physician onsite and consulted in the evaluation and care of this patient. The physician did have a face to face encounter with the patient. This chart was documented by the indicated scribe, (Huerta,Roby J., Scribe) and accurately reflects the services I performed and decisions made by me, Beau Cross MD, as attested by the provider's signature.
[2019-03-24 15:49] LABS: URINE SOURCE CATH
[2019-03-24 15:50] LABS: BILIRUBIN URINE NEGATIVE (NEGATIVE); BLOOD URINE NEGATIVE (NEGATIVE); COLOR YELLOW; GLUCOSE URINE NEGATIVE (NEGATIVE); KETONE URINE NEGATIVE (NEGATIVE); LEUKOCYTES URINE NEGATIVE (NEGATIVE); NITRITE URINE NEGATIVE (NEGATIVE); PH URINE 6.5; PROTEIN URINE NEGATIVE (NEGATIVE); SP GRAVITY URINE 1.014; TURBIDITY URINE CLEAR (CLEAR); UR EPITHELIAL CELLS <10 /HPF (<10); URINE BACTERIA NEGATIVE /HPF; URINE RBC <10 /HPF (<10); URINE WBC <10 /HPF (<10); UROBILINOGEN URINE NORMAL (NORMAL)
[2019-03-24 16:02] LABS: AGAP 12; ALB/GLOB RATIO 1.3; ALBUMIN 3.8 g/dL (3.5-5.0); ALKALINE PHOSPHATASE 101 U/L (32-104); BUN 19 mg/dL (8-22); CALCIUM 9.4 mg/dL (8.8-10.2); CHLORIDE 101 mmol/L (98-107); COSMO 282; CREATININE 0.6 mg/dL (0.5-0.9); ESTIMATED GFR > 60; GLUCOSE 109 mg/dL (70-104); GOT 30 U/L (10-30); GPT 15 U/L (10-36); POTASSIUM 4.3 mmol/L (3.5-5.1); SODIUM 140 mmol/L (136-145); TCO2 27 mmol/L (25-35); TOTAL BILIRUBIN 0.21 mg/dL (0.20-1.00); TOTAL PROTEIN 6.8 g/dL (6.3-8.3)
--- NOTE | 2019-03-24 17:46 | HISTORY AND PHYSICAL ---
PRIMARY CARE PROVIDER: Dr. Jose Boone. CHIEF COMPLAINT: Fall with right lower extremity pain. HISTORY OF PRESENT ILLNESS: Ms. Mckeon is a 88-year-old female, who carries a past medical history of coronary artery disease status post stenting, frequent urinary tract infections, arthritis, hypothyroidism, who was most recently discharged from our service on 03/14/2019 to [facility] in [place] after having a urinary tract infection and altered mental status. The patient could not remember what happened. Per family, she got up without asking for assistance. She felt dizzy and fell. She did not hit her head. There was no loss of consciousness. Workup in the ED revealed a right tibia-fibula fracture and hyperkalemia at 5.9; recheck after IV fluid is 4.3. She will be admitted to the surgical floor with an Orthopedic consult. Make her n.p.o. after midnight. PAST MEDICAL HISTORY: 1. Coronary artery disease status post stenting. 2. Frequent urinary tract infections. 3. Arthritis. 4. Hypothyroidism. PAST SURGICAL HISTORY: 1. Stents x3. 2. Hysterectomy. 3. With knee surgery. FAMILY HISTORY: Unknown. SOCIAL HISTORY: She was a . She lost her last month. She lives at home alone. No alcohol, tobacco, or illicit drug use. She had been in [facility] in [place] for rehabilitation for 1 week. ALLERGIES: Several: 1. Polysporin, rash. 2. Codeine, vomiting. 3. Ibuprofen, unknown. 4. IV dye, rash. 5. Lactose, nausea/vomiting. 6. Naproxen, flushing. 7. Penicillin, anaphylaxis. 8. Betadine, rash. 9. Shrimp, anaphylaxis. 10. Strawberries, anaphylaxis. 11. Sulfa (rash). 12. Tolmetin, unknown. HOME MEDICATIONS: 1. Aspirin 81 mg p.o. daily. 2. Digoxin 0.125 mg p.o. daily. 3. Cardizem 30 mg p.o. daily. 4. Synthroid 125 mcg p.o. daily. 5. Mobic 7.5 mg p.o. daily. 6. Protonix 40 mg p.o. daily. PHYSICAL EXAMINATION: VITAL SIGNS: Temperature is 98.5 degrees, heart rate 91, respirations 18, blood pressure 145/76, O2 is 96% on room air. GENERAL: Ms. Mckeon is a pleasant 88-year-old female, who is lying on the stretcher in no acute distress. HEENT: Atraumatic, normocephalic. PERRL. NECK: Supple. Trachea midline. CARDIOVASCULAR: S1, S2 appreciated. No murmurs, gallops, or rubs noted. RESPIRATORY: Lung sounds clear bilaterally. GASTROINTESTINAL: Soft, nontender, nondistended. Positive bowel sounds 4 quadrants. EXTREMITIES: Negative for edema. Bilateral pedal pulses are palpable. NEUROLOGIC: No focal deficits noted. DIAGNOSTIC DATA: Right ankle x-ray: Fracture to the distal shaft of the tibia, right femur. No evidence of fracture. Hip/pelvis x-ray: No acute bony injury. Lower extremity on the right showed tibia-fibula fracture. Lower extremity on the left: No acute injury. Chest x-ray: No evidence of acute disease. EKG: Normal sinus rhythm. White count 10, hemoglobin 12, hematocrit 37, platelet count is 352,000. Chemistry: Initial set of chemistry has been canceled where she showed a potassium of 5.9. Repeat labs: Sodium is 140, potassium 4.3, BUN 19, creatinine 0.6, blood glucose was 109. Urinalysis is negative for bacteria, negative for nitrites. Digoxin is 1.3. ASSESSMENT AND PLAN: 1. Status post mechanical fall with a right tibia-fibula fracture. We will consult Orthopedics, make her n.p.o. after midnight. Continue with pain management with Demerol. She was given a dose of morphine. She does have an allergy to codeine. She had a funny feeling in her chest and did not like the way that it made her feel, so we will continue with the Demerol and IV fluids. 2. Coronary artery disease status post stenting. We will continue home medications. 3. Frequent urinary tract infections history. She has been treated for a previous one. 4. Arthritis. 5. Hypothyroidism. Continue Synthroid. 6. Probable atrial fibrillation. Patient is on both digoxin and Cardizem. Further recommendation to follow physician evaluation and laboratory and diagnostic data. Dictated by NOBLE Becker for Javid Roe MD Addendum: Patient seen and examined by myself. Agree with NOBLE note. It reflects my assessment and plan. Patient is being admitted for tibia fibula fracture. Will consult Orthopedics and follow recommendations. cc: MD Jose Reece MD MTDD
[2019-03-24] MEDS: NS 1,000 ML IV SCH (18:45)
[2019-03-24] MEDS: DEMEROL IV PRN (21:05)
[2019-03-24] MEDS: COLACE PO SCH (21:06)
[2019-03-25] MEDS: DEMEROL IV PRN ×4 (05:44→20:24)
[2019-03-25 05:53] LABS: RBC 3.65 XMIL (4.2-5.4); WBC 7.69 X1000 (4.8-10.8)
[2019-03-25 05:54] LABS: BASO# 0.03 X1000 (0.0-0.2); BASO% 0.4 % (0.0-0.8); EOS# 0.34 X1000 (0.0-0.7); EOS% 4.4 % (0.0-10.0); HEMATOCRIT 33.3 % (37.0-47.0); HEMOGLOBIN 10.7 g/dL (12.0-16.0); LYMPH# 1.01 X1000 (1.2-3.4); LYMPH% 13.1 % (20.5-51.1); MCH 29.3 PG (27-31); MCHC 32.1 g/dL (33-37); MCV 91.2 FL (81-99); MONO# 0.81 X1000 (0.11-0.59); MONO% 10.5 % (1.7-9.3); MPV 10.4 FL (7.4-10.4); NEUT% 71.6 % (42.2-75.2); PLT 308 X1000 (130-400)
[2019-03-25 06:17] LABS: AGAP 5; ALB/GLOB RATIO 1.1; ALKALINE PHOSPHATASE 106 U/L (32-104); BUN 17 mg/dL (8-22); CALCIUM 8.7 mg/dL (8.8-10.2); CHLORIDE 105 mmol/L (98-107); COSMO 281; CREATININE 0.6 mg/dL (0.5-0.9); ESTIMATED GFR > 60; GLUCOSE 92 mg/dL (70-104); GOT 43 U/L (10-30); GPT 27 U/L (10-36); MAGNESIUM 1.8 mg/dL (1.5-2.7); POTASSIUM 3.9 mmol/L (3.5-5.1); SODIUM 140 mmol/L (136-145); TCO2 30 mmol/L (25-35); TOTAL BILIRUBIN 0.37 mg/dL (0.20-1.00); TOTAL PROTEIN 5.8 g/dL (6.3-8.3)
[2019-03-25] MEDS: NS 1,000 ML IV SCH ×2 (08:41→22:26)
[2019-03-25] MEDS: ZOFRAN IV PRN (11:14)
[2019-03-25] MEDS: COLACE PO SCH ×2 (11:25→20:24)
[2019-03-25] MEDS: SYNTHROID PO SCH (11:25)
[2019-03-25] MEDS: PROTONIX PO SCH (11:25)
[2019-03-25] MEDS: MOBIC PO SCH (11:25)
[2019-03-25] MEDS: CARDIZEM PO SCH (11:25)
[2019-03-25] MEDS: LANOXIN PO SCH (11:26)
--- NOTE | 2019-03-25 13:00 | ORTHOPAEDICS CONSULTATION ---
DATE: 03/25/2019 CHIEF COMPLAINT: Right leg pain. HISTORY OF PRESENT ILLNESS: This 88-year-old female was admitted by the hospitalist after a fall from a standing height with right tibia fracture. She complains of pain and tenderness over the right leg. She denies any other complaints. She reports soreness over the right leg only. PAST MEDICAL HISTORY: Significant for coronary disease with stenting, UTI, arthritis, hypothyroidism. SURGICAL HISTORY: Status post a stent, hysterectomy, knee surgery in the past. SOCIAL HISTORY: A household ambulator. Has family in the area. She is in [facility] for rehab currently. ALLERGIES: Reported to Polysporin, codeine, ibuprofen, IV dye, lactose, Naprosyn, penicillin, Betadine, shrimp, strawberry, sulfa, and tolmetin. HOME MEDICINES: Aspirin, digoxin, Cardizem, Synthroid, Mobic and Protonix. PHYSICAL EXAM: Examination reveals minimal deformity with only slight shortening of the right lower extremity. There is tenderness over the distal tibia and proximal fibula. Compartments are soft. No open wounds. She is nontender over the remainder of the right lower extremity. She is relatively nontender over both upper and the left lower extremity. X-RAYS: X-rays reviewed show a spiral distal 1/3 tibia fracture with a proximal nondisplaced fibula fracture. ASSESSMENT: Closed right tibia-fibula fracture. PLAN: The patient will be initially splinted to allow the swelling to reduce. Probably Wednesday morning, we will put her in a short-leg cast and re x-ray it. If the alignment looks good in the cast, we will consider nonsurgical care. If she has excessive shortening or displacement after casting, then we will need to consider surgical fixation, possibly on Wednesday. We have made orders for the splint to be applied. We will plan on casting her Wednesday. cc: Zbigniew Lundberg MD
--- NOTE | 2019-03-25 17:14 | PROGRESS NOTE ---
DATE: 03/25/2019 SUBJECTIVE: The patient has no major complaints. OBJECTIVE: Blood pressure is 126/53, heart rate of 72, respiratory rate 16, temperature 97.9 degrees, 93% on 2 L.Cardiovascular: Regular rate and rhythm. Pulmonary: Bilateral breath sounds clear to auscultation. GI: Was soft, nontender, nondistended. Bowel sounds are positive. Her right leg is in a cast . PROBLEMS: 1. Tibia-fibula fracture. She is in a cast alone now and they are considering surgery on Wednesday but other recommendations per Orthopedics obviously. 2. Coronary artery disease status post percutaneous coronary intervention. Will continue to follow, monitor. Continue regular medications. Holding anti-platelet for the time being. 3. Atrial fibrillation appears to be rate controlled. 4. Disposition. Will likely need rehab but once she is stabilized. 5. Hyperkalemia, that is also resolved. Disposition pending her clinical status. cc: Grnat Cormier MD MTDD
[2019-03-26 05:52] LABS: BASO# 0.04 X1000 (0.0-0.2); BASO% 0.5 % (0.0-0.8); EOS# 0.54 X1000 (0.0-0.7); EOS% 6.8 % (0.0-10.0); HEMATOCRIT 34.3 % (37.0-47.0); HEMOGLOBIN 10.9 g/dL (12.0-16.0); IMM GRAN# 0.02 X1000 (0.0-0.04); IMM GRAN% 0.3 % (0.0-0.5); LYMPH% 11.4 % (20.5-51.1); MCH 29.4 PG (27-31); MCHC 31.8 g/dL (33-37); MCV 92.5 FL (81-99); MONO# 0.92 X1000 (0.11-0.59); MONO% 11.6 % (1.7-9.3); MPV 10.5 FL (7.4-10.4); NEUT# 5.48 X1000 (1.4-6.5); NEUT% 69.4 % (42.2-75.2); PLT 312 X1000 (130-400); RBC 3.71 XMIL (4.2-5.4); RDW 17.1 % (11.5-14.5)
[2019-03-26 07:06] LABS: AGAP 12; BUN 17 mg/dL (8-22); CALCIUM 8.3 mg/dL (8.8-10.2); CHLORIDE 105 mmol/L (98-107); COSMO 281; CREATININE 0.5 mg/dL (0.5-0.9); ESTIMATED GFR > 60; GLUCOSE 97 mg/dL (70-104); MAGNESIUM 1.7 mg/dL (1.5-2.7); SODIUM 140 mmol/L (136-145); TCO2 23 mmol/L (25-35)
[2019-03-26 07:07] LABS: POTASSIUM 4.7 mmol/L (3.5-5.1)
--- NOTE | 2019-03-26 09:44 | ORTHOPAEDICS PROGRESS NOTE ---
DATE: 03/26/2019 SUBJECTIVE: Mrs. Mckeon will be casted in the morning. We will re-x-ray after the cast is applied. If the reduction looks good, then we can treat her nonsurgically. If not, we will plan on surgical fixation on Wednesday. cc: Zbigniew Lundberg MD
[2019-03-26] MEDS: PROTONIX PO SCH (09:48)
[2019-03-26] MEDS: LANOXIN PO SCH (09:49)
[2019-03-26] MEDS: MOBIC PO SCH (09:49)
[2019-03-26] MEDS: COLACE PO SCH ×2 (09:49→23:07)
[2019-03-26] MEDS: SYNTHROID PO SCH (09:49)
[2019-03-26] MEDS: ASPIRIN EC PO SCH (09:49)
[2019-03-26] MEDS: CARDIZEM PO SCH (09:49)
[2019-03-26] MEDS: NS 1,000 ML IV SCH ×2 (10:46→23:07)
[2019-03-26] MEDS: DEMEROL IV PRN ×2 (11:55→18:41)
--- NOTE | 2019-03-26 17:43 | PROGRESS NOTE ---
DATE: 03/26/2019 SUBJECTIVE: The patient looks a little bit better today. She is still in some pain. OBJECTIVE DATA: Vital signs: Her blood pressure is 137/48, heart rate 74, respiratory rate 18, temperature 98 degrees, 97% on room air. Cardiovascular: Regular rate and rhythm. Pulmonary: Bilateral breath sounds. Clear to auscultation. GI: Soft, nontender, nondistended. Bowel sounds are positive. LABORATORY DATA: White count is 7, hemoglobin and hematocrit 10 and 34, platelets 312,000. Basic looked okay. PROBLEM LIST: 1. Tibia-fibula fracture on the right. Planning for casting with reduction, I guess externally, and if stable then she can be treated nonsurgically. Orthopedics is managing, obviously. 2. Coronary artery disease status post percutaneous coronary intervention. Will continue regular medications. 3. Atrial fibrillation. She is not on anticoagulants, I guess maybe because of frequent falls, but I do think she needs some DVT prophylaxis. Will initiate Lovenox. This can be adjusted accordingly. 4. Disposition. She will go back to rehab once stabilized. cc: Grant Cormier MD
[2019-03-27 05:51] LABS: BASO# 0.03 X1000 (0.0-0.2); BASO% 0.3 % (0.0-0.8); EOS# 0.45 X1000 (0.0-0.7); EOS% 4.2 % (0.0-10.0); HEMATOCRIT 35.2 % (37.0-47.0); HEMOGLOBIN 11.4 g/dL (12.0-16.0); IMM GRAN# 0.03 X1000 (0.0-0.04); IMM GRAN% 0.3 % (0.0-0.5); LYMPH# 0.98 X1000 (1.2-3.4); LYMPH% 9.1 % (20.5-51.1); MCH 29.7 PG (27-31); MCHC 32.4 g/dL (33-37); MCV 91.7 FL (81-99); MONO# 0.95 X1000 (0.11-0.59); MONO% 8.8 % (1.7-9.3); MPV 10.6 FL (7.4-10.4); NEUT# 8.35 X1000 (1.4-6.5); NEUT% 77.3 % (42.2-75.2); PLT 329 X1000 (130-400); RBC 3.84 XMIL (4.2-5.4); RDW 16.9 % (11.5-14.5); WBC 10.79 X1000 (4.8-10.8)
[2019-03-27] MEDS ORDERED: LOVENOX SUBQ SCH (06:00)
[2019-03-27 06:10] LABS: AGAP 11; BUN 18 mg/dL (8-22); CALCIUM 8.6 mg/dL (8.8-10.2); CHLORIDE 99 mmol/L (98-107); COSMO 270; CREATININE 0.6 mg/dL (0.5-0.9); ESTIMATED GFR > 60; GLUCOSE 99 mg/dL (70-104); POTASSIUM 4.3 mmol/L (3.5-5.1); SODIUM 134 mmol/L (136-145); TCO2 24 mmol/L (25-35)
[2019-03-27] MEDS: SYNTHROID PO SCH (06:19)
--- NOTE | 2019-03-27 07:02 | ORTHOPAEDICS PROGRESS NOTE ---
DATE: 03/27/2019 Ms. Mckeon was seen today for her tibia-fibula fracture. We are going to place her in a cast today. After application of the cast, we will obtain new x-rays. If the x-rays show good alignment, then she can be treated nonsurgically. If there is angulation or significant shortening, we will need to consider surgical intervention of the tibia tomorrow with tibial nailing. cc: Zbigniew Lundberg MD
--- NOTE | 2019-03-27 07:32 | Diag Imaging Result Doc PS360 ---
EXAM: LOWER LEG-RIGHT HISTORY: tib/fib fx TECHNIQUE: Right tibia and fibula, three views COMPARISON: 03/24/2019 FINDINGS: An external cast has been placed. Fracture to the proximal fibula and tibia again demonstrated. Good alignment to the fibular fracture. There is still separation of the distal tibia fracture. Electronically signed by Ernst Navarro 03/27/2019 7:29 AM
[2019-03-27] MEDS: PROTONIX PO SCH (09:28)
[2019-03-27] MEDS: LANOXIN PO SCH (09:28)
[2019-03-27] MEDS: COLACE PO SCH ×2 (09:28→21:48)
[2019-03-27] MEDS: ASPIRIN EC PO SCH (09:28)
[2019-03-27] MEDS: MOBIC PO SCH (09:29)
[2019-03-27] MEDS: ZOFRAN IV PRN (09:29)
[2019-03-27] MEDS: CARDIZEM PO SCH (09:29)
[2019-03-27] MEDS: NS 1,000 ML IV SCH (15:33)
--- NOTE | 2019-03-27 16:16 | PROGRESS NOTE ---
DATE: 03/27/2019 SUBJECTIVE: Patient has no complaints. No major issues. OBJECTIVE: Blood pressure is 124/58, heart rate of 89, respiratory rate of 16, temperature 98.6 degrees, 94% on room air.Cardiovascular: Regular rate and rhythm. Pulmonary: Bilateral breath sounds. Clear to auscultation. GI: Soft, nontender, nondistended. Bowel sounds are positive. Extremities: No clubbing or cyanosis. Lymphatic: No peripheral edema. Neurological: Nonfocal. LABORATORY DATA: White count is 10, hemoglobin and hematocrit 11 and 35, platelets 329,000. Basic was normal. PROBLEM LIST: 1. Right tibia- fibular fracture. I attempted to do a cast reduction today, but I do not think her tibia was completely aligned, so now plan is for surgical correction tomorrow per Dr. Lundberg. 2. Coronary artery disease, percutaneous coronary intervention. Will continue regular medications. 3. Atrial fibrillation. She is stable. I am going to obviously hold her enoxaparin until we can resume it postop since she is going to get surgery tomorrow. We will continue to monitor. DISPOSITION: Pending her clinical status, but she is going to go back to rehab when she is stabilized. cc: Grant Cormier MD
[2019-03-27] MEDS: DEMEROL IV PRN (19:09)
[2019-03-28 05:43] LABS: BASO# 0.03 X1000 (0.0-0.2); BASO% 0.3 % (0.0-0.8); EOS# 0.38 X1000 (0.0-0.7); EOS% 4.2 % (0.0-10.0); HEMATOCRIT 34.1 % (37.0-47.0); IMM GRAN# 0.02 X1000 (0.0-0.04); IMM GRAN% 0.2 % (0.0-0.5); LYMPH% 8.7 % (20.5-51.1); MCH 29.4 PG (27-31); MCHC 32.3 g/dL (33-37); MCV 91.2 FL (81-99); MONO# 0.87 X1000 (0.11-0.59); MONO% 9.5 % (1.7-9.3); MPV 10.7 FL (7.4-10.4); NEUT# 7.05 X1000 (1.4-6.5); NEUT% 77.1 % (42.2-75.2); PLT 319 X1000 (130-400); RBC 3.74 XMIL (4.2-5.4); RDW 17.1 % (11.5-14.5); WBC 9.15 X1000 (4.8-10.8)
[2019-03-28 05:55] LABS: AGAP 10; BUN 15 mg/dL (8-22); CALCIUM 9.1 mg/dL (8.8-10.2); CHLORIDE 103 mmol/L (98-107); COSMO 280; CREATININE 0.5 mg/dL (0.5-0.9); ESTIMATED GFR > 60; GLUCOSE 103 mg/dL (70-104); POTASSIUM 4.3 mmol/L (3.5-5.1); SODIUM 140 mmol/L (136-145); TCO2 27 mmol/L (25-35)
[2019-03-28] MEDS: SYNTHROID PO SCH (06:53)
[2019-03-28] MEDS ORDERED: DIPRIVAN 1% ONE (09:19)
[2019-03-28] MEDS ORDERED: XYLOCAINE-MPF 2% ONE (09:19)
[2019-03-28] MEDS: PROTONIX PO SCH (10:52)
[2019-03-28] MEDS: ASPIRIN EC PO SCH (10:52)
[2019-03-28] MEDS: CARDIZEM PO SCH (10:53)
[2019-03-28] MEDS: MOBIC PO SCH (10:53)
[2019-03-28] MEDS: COLACE PO SCH ×2 (10:53→22:43)
[2019-03-28] MEDS: LANOXIN PO SCH (10:53)
[2019-03-28] MEDS ORDERED: SENSORCAINE 0.25%/EPI 1:200,000 ONE (11:10)
[2019-03-28] MEDS ORDERED: ZOFRAN ONE (11:31)
[2019-03-28] MEDS ORDERED: KEFZOL 1 GM/D5W 1 GM/50 ML IVPB ONE (11:34)
[2019-03-28] MEDS ORDERED: DILAUDID ONE (12:08)
--- NOTE | 2019-03-28 13:21 | OPERATIVE NOTE ---
PROCEDURE DATE: 03/28/2019 PREOPERATIVE DIAGNOSIS: Unstable right distal tibia fracture. POSTOPERATIVE DIAGNOSIS: Unstable right distal tibia fracture. PROCEDURE: Closed reduction intramedullary fixation with tibial nail, right tibia. SURGEON: Carli Lundberg MD. AUTOMATIC STACKER: Maxx Gooden MD. Dr. Gooden was necessary for proper retraction and manipulation of the leg. ANESTHESIA: General. COMPLICATION: None. PROCEDURE IN DETAIL: An 88-year-old female who presents for surgical reduction of an unstable tib- fib fracture. Risks, benefits, and no guarantees were discussed, and she is willing to proceed. She was taken to the operating room and satisfactory anesthesia obtained. The right leg was prepped and draped in the usual sterile fashion. A time-out was taken to confirm operative site, procedure, and patient. The leg was wrapped with an Esmarch and tourniquet inflated to 350 mmHg. An incision was made along the medial border of the infrapatellar tendon and dissection carried down through the paratenon medial to the infrapatellar tendon. The anterior cortex of the proximal tibia was identified and under multiplanar image guidance, a guide pin placed at the angle of the anterior cortex in the midline. This was reamed with the entry reamer for the [employer] tibial nail. A ball-tip guidewire was then inserted down the intramedullary canal while the fracture was held reduced, and passed into the distal fragment. A 380 nail was selected and sequential reaming up to a 12 mm diameter reamer under ball-tip guidewire was undertaken. An 11 x 380 nail was then inserted over the guidewire and the guidewire removed. A static proximal screw was placed from medial to lateral using the provided guides through the nail and bone. Two distal screws were placed while the fracture was reduced to restore both length and angulation for proper alignment. Two distal screws were placed from the medial aspect using perfect tatitlek freehand technique through 2 additional stab wounds. The C-arm was then used to verify accurate fracture reduction and hardware placement. The wounds were irrigated and closed in layers with a running 0 Vicryl in the paratenon, 2-0 Vicryl in the subcu, and skin gonzalez on the skin edges. Sterile dressings completed the closure and the patient was recovered from anesthesia and transferred to the recovery room in stable condition. No intraoperative complications were noted. Instrument count and sponge count was correct at the time of closure. cc: Zbigniew Lundberg MD
[2019-03-28] MEDS ORDERED: ZOFRAN IV PRN (14:16)
[2019-03-28] MEDS ORDERED: MORPHINE IV PRN (14:16)
[2019-03-28] MEDS ORDERED: MILK OF MAGNESIA PO PRN (14:16)
[2019-03-28] MEDS ORDERED: HALDOL IV PRN (14:30)
[2019-03-28] MEDS: NS 1,000 ML IV SCH ×2 (15:30→23:44)
--- NOTE | 2019-03-28 17:49 | PROGRESS NOTE ---
DATE: 03/28/2019 SUBJECTIVE: Patient has no major complaints. She is seen postoperatively. She is still very sedated. OBJECTIVE: Blood pressure 134/48, heart rate 78, respiratory rate of 10 to 12, temperature 98.2 degrees.Cardiovascular: Regular rate and rhythm. Pulmonary: Bilateral breath sounds clear to auscultation. Gastrointestinal: Soft, nontender, nondistended. Bowel sounds are positive. LABORATORY DATA: White count 9, hemoglobin 11, hematocrit 34, platelets 319,000. PROBLEM LIST: 1. Right tibia-fibula fracture. Cast reduction did not work. Of note, I did not attempt the cast reduction; that was not me. She underwent ORIF today per Dr. Lundberg. We will continue PT and pain control. 2. Coronary artery disease. We will continue regular medications. 3. Atrial fibrillation. She has been changed to Xarelto, and we will continue to monitor. cc: Grant Cormier MD
[2019-03-28] MEDS: DEMEROL IV PRN (19:34)
[2019-03-28] MEDS: KEFZOL 1 GM/D5W 1 GM/50 ML IVPB IV SCH (19:35)
[2019-03-28] MEDS ORDERED: TYLENOL PO SCH (20:00)
[2019-03-28] MEDS: PERIDEX MT SCH (22:44)
[2019-03-28] MEDS ORDERED: TYLENOL PR PRN (22:48)
[2019-03-29] MEDS: OXY IR PO PRN ×4 (00:48→23:39)
[2019-03-29] MEDS: KEFZOL 1 GM/D5W 1 GM/50 ML IVPB IV SCH (04:41)
[2019-03-29 05:43] LABS: HEMATOCRIT 30.4 % (37.0-47.0); HEMOGLOBIN 9.7 g/dL (12.0-16.0)
[2019-03-29 06:00] LABS: AGAP 9; BUN 13 mg/dL (8-22); CALCIUM 8.3 mg/dL (8.8-10.2); CHLORIDE 101 mmol/L (98-107); COSMO 272; CREATININE 0.5 mg/dL (0.5-0.9); ESTIMATED GFR > 60; GLUCOSE 101 mg/dL (70-104); SODIUM 136 mmol/L (136-145); TCO2 26 mmol/L (25-35)
[2019-03-29] MEDS: SYNTHROID PO SCH (06:20)
[2019-03-29] MEDS: XARELTO PO SCH (06:21)
[2019-03-29] MEDS: TYLENOL PO PRN ×2 (06:21→21:22)
--- NOTE | 2019-03-29 07:52 | ORTHOPAEDICS PROGRESS NOTE ---
DATE: 03/29/2019 Ms. Mckeon is seen status post IM nailing of the tibia. She is afebrile with stable vital signs. Her bandage is clean and dry. She can be mobilized, touchdown weightbearing on the lower extremity. She can be transferred to a rehab center tomorrow. We will need to follow up with her in roughly 2 weeks' time. cc: Zbigniew Lundberg MD
[2019-03-29] MEDS: FERROUS SULFATE PO SCH (10:15)
[2019-03-29] MEDS: LANOXIN PO SCH (10:15)
[2019-03-29] MEDS: CARDIZEM PO SCH (10:15)
[2019-03-29] MEDS: MOBIC PO SCH (10:15)
[2019-03-29] MEDS: PROTONIX PO SCH (10:15)
[2019-03-29] MEDS: PERIDEX MT SCH ×2 (10:16→21:22)
[2019-03-29] MEDS: ASPIRIN EC PO SCH (10:16)
--- NOTE | 2019-03-29 19:25 | PROGRESS NOTE ---
DATE: 03/29/2019 SUBJECTIVE: Patient has no major complaints. OBJECTIVE: Vital Signs: Blood pressure is 129/55, heart rate was 92, respiratory rate 14, temperature 98.3 degrees. Cardiovascular: Regular rate and rhythm. Pulmonary: Bilateral breath sounds. Clear to auscultation. GI: Soft, nontender, nondistended. Bowel sounds are positive. LABORATORY DATA: Hemoglobin and hematocrit down to 9 and 30. Basic was normal. PROBLEM LIST: 1. Tibia-fibula fracture on the right, status post intramedullary nailing. She seems to be doing okay. Will plan for transfer to rehabilitation tomorrow. 2. Coronary artery disease is stable. Continue regular medications. 3. Atrial fibrillation. She is on Xarelto. We will continue to monitor. She is not always on Xarelto, but we will continue her regular medications and follow. DISPOSITION: Pending clinical status, but anticipate discharge tomorrow if stable. Medications are in. cc: Grant Cormier MD
[2019-03-29] MEDS: COLACE PO SCH (21:22)
[2019-03-30 06:14] LABS: HEMATOCRIT 31.4 % (37.0-47.0); HEMOGLOBIN 10.1 g/dL (12.0-16.0)
[2019-03-30] MEDS: SYNTHROID PO SCH (06:39)
[2019-03-30] MEDS: TYLENOL PO PRN (06:39)
[2019-03-30] MEDS: XARELTO PO SCH (06:39)
[2019-03-30 06:49] LABS: URINE SOURCE CATH
[2019-03-30 06:54] LABS: BILIRUBIN URINE NEGATIVE (NEGATIVE); BLOOD URINE TRACE (NEGATIVE); COLOR YELLOW; GLUCOSE URINE NEGATIVE (NEGATIVE); KETONE URINE NEGATIVE (NEGATIVE); LEUKOCYTES URINE NEGATIVE (NEGATIVE); NITRITE URINE NEGATIVE (NEGATIVE); PH URINE 6.5; PROTEIN URINE TRACE mg/dL (NEGATIVE); SP GRAVITY URINE 1.013; TURBIDITY URINE CLEAR (CLEAR); UROBILINOGEN URINE NORMAL (NORMAL)
[2019-03-30 06:56] LABS: UR EPITHELIAL CELLS <10 /HPF (<10); URINE BACTERIA NEGATIVE /HPF; URINE RBC <10 /HPF (<10); URINE WBC <10 /HPF (<10)
--- NOTE | 2019-03-30 07:17 | Diag Imaging Result Doc PS360 ---
EXAM: CHEST-PORTABLE 03/29/2019 HISTORY: Fever TECHNIQUE: AP portable upright at 2247 COMMENT: There is ill-defined opacity in the left lower lobe and blunting of the left costophrenic angle. These findings were not present on 03/24/2019. There is some minimal platelike opacity over the right base which was present previously. The heart size is enlarged. IMPRESSION: Atelectasis versus pneumonia in the left lower lobe. Left pleural effusion. Cardiomegaly. Electronically signed by Lamont Queen 03/30/2019 7:15 AM
[2019-03-30] MEDS: PERIDEX MT SCH ×2 (08:16→21:53)
[2019-03-30] MEDS: PROTONIX PO SCH (08:17)
[2019-03-30] MEDS: ASPIRIN EC PO SCH (08:17)
[2019-03-30] MEDS: FERROUS SULFATE PO SCH (08:17)
[2019-03-30] MEDS: MOBIC PO SCH (08:17)
[2019-03-30] MEDS: LANOXIN PO SCH (08:17)
[2019-03-30] MEDS: CARDIZEM PO SCH (08:18)
[2019-03-30] MEDS: MAXIPIME 2 GM in NS 100 ML IV SCH ×2 (12:00→21:53)
--- NOTE | 2019-03-30 12:51 | PROGRESS NOTE ---
DATE: 03/30/2019 SUBJECTIVE: The patient has no major complaints. She did have a fever though overnight of 102.7. She is not complaining of any focal symptoms. Chest x-ray though last night showed a left lower lobe infiltrate versus atelectasis with a small effusion. OBJECTIVE: VITALS: 95/57,heart rate 83, respiratory rate 24, temperature 98.7 currently, 93% on room air. CARDIOVASCULAR: Regular rate and rhythm. PULMONARY: Bilateral breath sounds clear to auscultation. She does have a little bit rales at the bases. GASTROINTESTINAL: Soft, nontender, nondistended. Bowel sounds are positive. Hemoglobin and hematocrit is 10 and 31 today. UA was negative. Chest x-ray showed the left lower lobe infiltrates. PROBLEM LIST: 1. New onset fever most likely left lower lobe pneumonia. We will call it institutional-acquired since it developed since she has been here. Initial cefepime and will see how she does. Pulmonary toilet. She really has not been getting out of bed very much so certainly at risk with atelectasis, but she is getting out of bed now. Once afebrile, anticipate discharge hopefully by tomorrow versus the next day. 2. Tibia/fibula fracture right-sided status post intramedullary nailing. Dr. Lundberg is following. She is stable from that standpoint. 3. Atrial fibrillation. She is on Xarelto and a very low-dose of Cardizem. We will continue to monitor. 4. Disposition. Again plan is rehab but we are waiting for her infectious issues to be stabilized before she is ready for discharge. cc: Grant Cormier MD
--- NOTE | 2019-03-30 14:56 | ORTHOPAEDICS PROGRESS NOTE ---
DATE: 03/30/2019 SUBJECTIVE DATA: Ms. Mckeon is seen postop her IM nailing of her tibia. She reports she is doing well at this time. She states she did spike a fever while she has been here. OBJECTIVE DATA: Her bandages are clean and dry to the right lower extremity. There is good capillary refill in the toes. There is good sensation. Recent chest x-ray shows possible developing left lower lobe pneumonia and left pleural effusion. Vital signs have been stable. ASSESSMENT: Unstable right distal tibia fracture with intramedullary fixation nail of the tibia, possible pneumonia. PLAN: We have planned to let Dr. Cormier handle the patient's pneumonia. As far as her tibial fracture, it is doing well at this time. If she is stable enough for rehab placement when she gets better from this pneumonia, then she can be transferred then. We will keep an eye on her while she is in the hospital. Dictated by NOBLE Hester for Zbigniew Lundberg MD cc: NOBLE Hester MD
[2019-03-30] MEDS: XOPENEX NEB INH SCH ×2 (16:51→22:47)
[2019-03-30] MEDS: COLACE PO SCH (21:53)
[2019-03-30] MEDS: OXY IR PO PRN (23:25)
--- NOTE | 2019-03-31 04:57 | DISCHARGE SUMMARY ---
ADMISSION DATE: 03/24/2019 DISCHARGE DATE: 03/30/2019 PRIMARY CARE PHYSICIAN: Dr. Jose Boone CONSULTATIONS: Orthopedics. ADMISSION DIAGNOSES: 1. Status post mechanical fall with a right tibia-fibula fracture. 2. Coronary artery disease status post stenting. 3. Frequent urinary tract infection history. 4. Arthritis. 5. Hypothyroidism. 6. Probable atrial fibrillation. DISCHARGE DIAGNOSES: 1. Tibia-fibula fracture on the right, status post intramedullary nailing. 2. Coronary artery disease. 3. Atrial fibrillation. SUMMARY OF FINDINGS: This is an 88-year-old female who presented to the emergency room after she was at [facility], got up without asking for assistance, felt dizzy, and fell. She did not hit her head and there was no loss of consciousness, but her workup showed a right tibia-fibula fracture. She also had an elevation in her potassium at 5.9. After IV fluids and recheck, it came down to 4.3 so she was admitted to the surgical floor and Orthopedics was consulted. Her surgery was on 03/28/2019, and had a closed reduction intramedullary fixation of the tibia nail of the right tibia. She tolerated this procedure well. She has been being followed by physical therapy. The discharge summary at this time is being placed on hold as she had a temperature last night of 102.7. Currently, temperature is 98.3 degrees, but we will place this on hold at this time, and ensure that there are no other signs of any infection at this time. The remainder of discharge summary to be completed once she is ready for discharge. Dictated by NOBLE Weaver for Grant Cormier MD cc: NOBLE Weaver MD
[2019-03-31 05:31] LABS: HEMATOCRIT 30.5 % (37.0-47.0); HEMOGLOBIN 9.9 g/dL (12.0-16.0)
[2019-03-31] MEDS: OXY IR PO PRN ×3 (05:44→12:16)
[2019-03-31] MEDS: SYNTHROID PO SCH ×2 (05:44→09:21)
[2019-03-31] MEDS: XARELTO PO SCH (05:45)
--- NOTE | 2019-03-31 08:26 | ORTHOPAEDICS PROGRESS NOTE ---
DATE: 03/31/2019 SUBJECTIVE DATA: Ms Mckeon is seen for her IM nailing of her right tibia. She reports she is doing okay at this time. She states she does feel kind of lousy due to her pneumonia. She states that her fever has been better controlled over this past night. OBJECTIVE DATA: Her bandage is clean and dry on her right lower extremity. There is good capillary refill in the toes. There is good sensation. His vital signs have been stable. ASSESSMENT: Right distal tibia fracture with intramedullary fixation nail of the tibia, and pneumonia. PLAN: We will continue to let Dr. Cormier handle the patient's pneumonia. Her tibial nails and tibial fracture is do well. We are okay with her going to rehab whenever this pneumonia is under control and she is medically stable. She is to follow up with Dr. Lundberg in 2 weeks to have follow- up x-rays. Dictated by NOBLE Hester for Zbigniew Lundberg MD cc: NBOLE Hester MD
[2019-03-31] MEDS: ASPIRIN EC PO SCH (09:13)
[2019-03-31] MEDS: PERIDEX MT SCH (09:13)
[2019-03-31] MEDS: LANOXIN PO SCH (09:13)
[2019-03-31] MEDS: CARDIZEM PO SCH (09:13)
[2019-03-31] MEDS: FERROUS SULFATE PO SCH (09:14)
[2019-03-31] MEDS: MOBIC PO SCH (09:14)
[2019-03-31] MEDS: PROTONIX PO SCH (09:14)
--- NOTE | 2019-03-31 09:41 | Diag Imaging Result Doc PS360 ---
CHEST-PORTABLE - 03/31/2019 INDICATION: pneumonia COMPARISON: 03/29/2019 FINDINGS: There is new linear atelectasis in the right lung base. Stable nonspecific airspace opacification at the left lower lobe. Stable cardiomegaly. Pulmonary vascularity is top normal. IMPRESSION: Linear atelectasis in the right lung base. Otherwise no change from prior. Electronically signed by Jhon Valles 03/31/2019 9:39 AM
[2019-03-31] MEDS: XOPENEX NEB INH SCH (10:22)
--- NOTE | 2019-03-31 11:07 | DISCHARGE SUMMARY ---
ADMISSION DATE: 03/24/2019 DISCHARGE DATE: DISCHARGE DIAGNOSES: 1. Closed fracture of the right tibia fibula. 2. Altered mentation. 3. Anemia, status post acute blood loss. 4. Coronary artery disease. 5. Left lower lobe pneumonia. HOSPITAL COURSE: The patient was kept another 24 hours because she developed a fever on the . Chest x-ray showed a new left lower lobe infiltrate. She was placed on cefepime and she is clinically improved. We will discharge her on Ceftin for another 10 days. Rest of the medications are listed that are active in the previous discharge summary. The patient looks well. She is up and about and seems stable for discharge. TIME: 32 minute discharge. cc: Grant Cormier MD
[2019-03-31 11:19] VITALS: BP 144/65
[2019-03-31] MEDS: MAXIPIME 2 GM in NS 100 ML IV SCH (12:05)
== END 2019-03-31 13:34 | DRG 492 ==
LOC: SUPCPDRO → ED 12:14 → 4N 15:55 → SUATTDRO 15:55
PROVIDERS: ATTEND Internal Medicine